=== PATIENT | male | born 1975 | race Caucasian/White ===

== ENCOUNTER 2016-06-17 20:13 | Emergency (ER) | payer SELFPAY ==
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
[2016-06-17 20:25] VITALS: BP 134/70
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
== END 2016-06-17 22:33 | disposition home or self-care (01) ==
LOC: ER 20:13
DX: S62.309A Unspecified fracture of unspecified metacarpal bone, initial encounter for closed fracture (principal); Y00.XXXA Assault by blunt object, initial encounter; F17.200 Nicotine dependence, unspecified, uncomplicated
CPT/HCPCS: 99284